=== PATIENT | female | born 1975 ===

== ENCOUNTER → 2025-06-22 | Emergency (ER) | payer OTHER ==
[~2025-06-22] VITALS: Ht 162.6 cm; Wt 81.6 kg
[~2025-06-22] MED LIST: 0.9 % SODIUM CHLORIDE 1,000 ML IV SCH; CARDURA XL4 MG; CEFTRIAXONE SODIUM 2,000 MG VIAL IV ONE; CEFTRIAXONE SODIUM 2,000 MG VIAL ONE; CEPHALEXIN750 MG PO; DIPHENHYDRAMINE HCL 50 MG/ML VIAL 1ML IV ONE; DIPHENHYDRAMINE HCL 50 MG/ML VIAL 1ML ONE; EZALLOR SPRINKL10 MG; FAMOTIDINE/PF 20 MG/2 ML VIAL ONE; FAMOtidine 10 MG/ML (4ML VIAL) IV ONE; HYZAAR 100-251 EACH; METHYLPREDNISOLONE SOD SUCC 125 MG VIAL IV ONE; METHYLPREDNISOLONE SOD SUCC 125 MG VIAL ONE; MOUNJARO2.5 MG/0.5
[2025-06-22 13:15] VITALS: BP 137/84; O2SAT 99
[2025-06-22 15:03] LABS: BASO % 0.6 % (0.1-1.2); EOS # 0.07 (0.04-0.54); EOS % 0.6 % (0.7-7.0); LYMPH # 3.82 (1.18-3.74); LYMPH % 31.8 % (19.3-53.1); MEAN PLATELET VOLUME 12.10 fl (9.4-12.4); MONO # 0.46 (0.24-0.82); MONO % 3.8 % (4.7-12.5); NEUT # 7.56 (1.56-6.13); NEUT % 63.0 % (34.0-71.1); RED CELL DISTRIBUTION WIDTH 13.2 % (11.6-14.4)
[2025-06-22 15:17] LABS: ERYTHROCYTE SEDIMENTATION RATE 15 mm/hr (0-30)
[2025-06-22 15:19] LABS: COVID-19 AG NEGATIVE (NEGATIVE)
[2025-06-22 15:25] LABS: BUN CREA RATIO 10.0 (7.0-25.0); CREATININE SERUM 0.8 mg/dL (0.55-1.02); GFR 75.62; GLUCOSE FASTING 189.0 mg/dL (65-100); OSMOLALITY SERUM 281.0 MOSM/KG (275-295)
== END | disposition home or self-care (01) ==
LOC: ER 13:07
PROVIDERS: General Practice
DX: R21 Rash and other nonspecific skin eruption (principal); R50.9 Fever, unspecified; Z20.822 Contact with and (suspected) exposure to COVID-19; Z91.018 Allergy to other foods
CPT/HCPCS: 36415; 96365; 99282; J7030